=== PATIENT | female | born 1960 | race Two or more races ===

== ENCOUNTER 2020-03-21 12:52 | Outpatient (CLI) | payer OTHER ==
[~2020-03-21 12:52] MED LIST: NABUMETONE500 MG PO; PERCOCET 5/3251 TAB PO
== END 2020-03-21 14:18 | disposition home or self-care (01) ==
LOC: SONOGRAMA 12:52
PROVIDERS: ATTEND Surgery
DX: N60.11 Diffuse cystic mastopathy of right breast (principal); N60.12 Diffuse cystic mastopathy of left breast; N63.23 Unspecified lump in the left breast, lower outer quadrant

== ENCOUNTER 2023-11-15 12:28 | Outpatient (CLI) | payer OTHER | END 2023-11-15 12:40 | disposition home or self-care (01) | LOC: NUCLEAR 12:28 | PROVIDERS: ATTEND Internal Medicine Pulmonary Disease | DX: I27.82 Chronic pulmonary embolism (principal) ==